=== PATIENT | female | born 1980 | race Caucasian/White ===

== ENCOUNTER 2017-02-21 15:19 | Emergency (ER) | payer OTHER ==
--- NOTE | 2017-02-21 16:19 | ED NURSING NOTES ---
Clinical Report - Nurses [facility] [address] [place] [address] 02/21/2017 15:20 Patient: ENDER BANKS TRIAGE Triage time 15:27. Acuity: LEVEL 4. Chief Complaint: TOOTHACHE. Alert. KATHRYN COMA SCORE: Kathryn Coma Scale: 15- eyes open spontaneously (4); best verbal response- oriented x 4 (5); best motor response- obeys commands (6). --15:34 Edwina Gregory R.N. 15:27 02/21/17. BP: 106/52. HR: 93. RR: 18. O2 saturation: 96% on room air. Temp: 98.4 F (oral). Pain level now: 07/06. --15:34 Edwina Gregory R.N. Weight: 73.4 kg stated. Height/Length: 68 inches Per Patient. BMI: 24.6. --15:31 Edwina Gregory R.N. Medications Venlafaxine HCl Oral. --15:28 Edwina Gregory R.N. LaMICtal Oral. --15:29 Edwina Gregory R.N. Medication/allergy information source: the patient. --15:34 Edwina Gregory R.N. Allergies Aspirin. Ibuprofen. Morphine and Related. Penicillins. --15:28 Edwina Gregory R.N. History Arrived by private vehicle. Historian: patient. Accompanied by family. Primary physician (Ken). Onset. (about 1 week). ( swelling onset about 2 hours ago). PAST MEDICAL HX: Last normal menstrual period- December 2016, "has been really weird for the last few months". SOCIAL HX: Heavy tobacco smoker- less than 1 pack per day. History of drug use: marijuana. No alcohol use. FALL RISK ASSESSMENT: Fall risk assessment completed. No fall risk identified. FUNCTIONAL ASSESSMENT: Functional assessment: no impairments noted. LEARNING NEEDS ASSESSMENT: The learning needs assessment revealed no barriers. --15:34 Colt, Edwina, R.N. PROBLEMS: Depression. Asthma. --15:29 Edwina Gregory R.N. ADDITIONAL SURGERIES: Knee Surgery. Laparoscopy. Oophorectomy. --15:30 Edwina Gregory R.N. Assessment GENERAL / NEURO / PSYCH: The patient is awake and alert, is oriented and cooperative and appears uncomfortable. She has poor eye contact. ( tearful). RESPIRATORY: Respirations not labored. SKIN: Skin is warm and dry. --15:34 Edwina Gregory R.N. Interventions ID and allergy band on patient. To treatment room. --15:34 Edwina Gregory R.N. PHYSICAL ASSESSMENT 15:30. Ambulatory to room. GENERAL / NEURO / PSYCH: The patient is awake and alert, is oriented and cooperative and appears uncomfortable. She has poor eye contact. RESPIRATORY: Respirations not labored. SKIN: Skin is warm and dry. --17:52 Edwina Gregoyr R.N. NURSING PROGRESS NOTES 15:30. Head of bed elevated. Call light placed in reach. Side rails up x 1. Bed placed in lowest position. Brakes of bed on. --17:52 Edwina Gregory R.N. 16:30. Overall patient status is the same- she states feels the same (pt appears sleepy, doesn't make eye contact). RESPIRATORY: No respiratory distress. SKIN: Skin is warm and dry. --17:55 Edwina Gregory R.N. DISPOSITION / DISCHARGE Departure time: 1620. Condition at departure: stable. Ability to learn limited by poor cooperation. Discharge instructions provided and reviewed with the patient. Reviewed medication(s). Prescription(s) given to the patient. Patient verbalized understanding. Written instructions provided in Sudanese. The patient was discharged home and accompanied by child. She left the Emergency Department ambulatory and via private vehicle. FALL RISK ASSESSMENT: Fall risk assessment completed. No fall risk identified. --17:54 Edwina Gregory R.N. 16:20 02/21/17. BP: 112/58. HR: 71. RR: 16. O2 saturation: 100% on room air. Pain level now: 07/06. --17:54 Edwina Gregory R.N. Locked/Released at 02/21/2017 17:56 by Edwina Gregory R.N.
--- NOTE | 2017-02-21 16:19 | ED CLINICAL REPORT ---
Clinical Report - Physicians/Mid Levels [facility] [address] [place] [address] 02/21/2017 15:20 Patient: ENDER BANKS Time Seen: 15:31. Arrived- By private vehicle. Historian- patient. HISTORY OF PRESENT ILLNESS Chief Complaint: DENTAL PAIN. This started about 1 week ago and is still present. It was gradual in onset and has been constant. Pain described as severe. The patient has had severe toothache (right upper molar). She has had mild swelling of the right face. She has had jaw pain. REVIEW OF SYSTEMS No chills, fever, sweats, calf pain or chest pain. No cough, difficulty breathing, pedal edema, palpitations or abdominal pain. No constipation, diarrhea, nausea, vomiting or urinary problems. All systems otherwise negative, except as recorded above. PAST HISTORY Problems: Asthma. Depression. Additional Surgeries: Knee Surgery. Laparoscopy. Oophorectomy. Medications: LaMICtal Oral. Venlafaxine HCl Oral. Allergies: Aspirin. Ibuprofen. Morphine and Related. Penicillins. SOCIAL HISTORY Current every day heavy tobacco smoker (cigarette)- less than 1 pack per day. History of occasional drug use: marijuana. No alcohol use. FAMILY HISTORY No significant family medical history. ADDITIONAL NOTES The nursing notes have been reviewed. PHYSICAL EXAM Vital Signs: 02/21/2017 15:27 BP: 106/52. HR: 93. RR: 18. O2 saturation: 96%. Temp: 98.4 F. Pain level now: 10/10. Have been reviewed. Appearance: Alert. Eyes: Pupils equal, round and reactive to light. ENT: Dental decay with gingival tenderness, induration and swelling (upper right molars). Ears normal. Nose normal. Pharynx normal. Lips normal. No trismus present. Uvula midline. Neck: Trachea midline. No adenopathy. Thyroid normal. Neck supple. CVS: Heart sounds normal. Respiratory: Breath sounds normal. Skin: Normal skin color. No rash. Normal skin turgor. PROGRESS AND PROCEDURES Course of Care: Patient is stable. Patient/family counseled. Old medical records ordered. Old records unavailable. Disposition: Discharged. Condition: stable. CLINICAL IMPRESSION Dental pain. INSTRUCTIONS No driving or operating machinery while taking medication. Drink plenty of fluids. Warnings: Further evaluation is necessary. GENERAL WARNINGS: Return or contact your physician immediately if your condition worsens or changes unexpectedly, if not improving as expected, or if other problems arise. Prescription Medications: Ultram 50 mg: take 1-2 orally every 6 hours as needed for pain. Dispense fifteen (15). No refills. Substitution is permissible. Clindamycin 300 mg: take 1 capsule orally every 6 hours for 10 days. No refill. Follow-up: Follow up with a dentist Wednesday in two days. Call for an appointment. Understanding of the discharge instructions verbalized by patient. (Electronically signed by Thom Rankin MD 02/21/2017 19:39)
--- NOTE | 2017-02-21 16:19 | ED CLINICAL REPORT ---
Clinical Report - Physicians/Mid Levels [facility] [address] [place] [address] 02/21/2017 15:20 Patient: ENDER BANKS Time Seen: 15:31. Arrived- By private vehicle. Historian- patient. HISTORY OF PRESENT ILLNESS Chief Complaint: DENTAL PAIN. This started about 1 week ago and is still present. It was gradual in onset and has been constant. Pain described as severe. The patient has had severe toothache (right upper molar). She has had mild swelling of the right face. She has had jaw pain. REVIEW OF SYSTEMS No chills, fever, sweats, calf pain or chest pain. No cough, difficulty breathing, pedal edema, palpitations or abdominal pain. No constipation, diarrhea, nausea, vomiting or urinary problems. All systems otherwise negative, except as recorded above. PAST HISTORY Problems: Asthma. Depression. Additional Surgeries: Knee Surgery. Laparoscopy. Oophorectomy. Medications: LaMICtal Oral. Venlafaxine HCl Oral. Allergies: Aspirin. Ibuprofen. Morphine and Related. Penicillins. SOCIAL HISTORY Current every day heavy tobacco smoker (cigarette)- less than 1 pack per day. History of occasional drug use: marijuana. No alcohol use. FAMILY HISTORY No significant family medical history. ADDITIONAL NOTES The nursing notes have been reviewed. PHYSICAL EXAM Vital Signs: 02/21/2017 15:27 BP: 106/52. HR: 93. RR: 18. O2 saturation: 96%. Temp: 98.4 F. Pain level now: 10/10. Have been reviewed. Appearance: Alert. Eyes: Pupils equal, round and reactive to light. ENT: Dental decay with gingival tenderness, induration and swelling (upper right molars). Ears normal. Nose normal. Pharynx normal. Lips normal. No trismus present. Uvula midline. Neck: Trachea midline. No adenopathy. Thyroid normal. Neck supple. CVS: Heart sounds normal. Respiratory: Breath sounds normal. Skin: Normal skin color. No rash. Normal skin turgor. PROGRESS AND PROCEDURES Course of Care: Patient is stable. Patient/family counseled. Old medical records ordered. Old records unavailable. Disposition: Discharged. Condition: stable. CLINICAL IMPRESSION Dental pain. INSTRUCTIONS No driving or operating machinery while taking medication. Drink plenty of fluids. Warnings: Further evaluation is necessary. GENERAL WARNINGS: Return or contact your physician immediately if your condition worsens or changes unexpectedly, if not improving as expected, or if other problems arise. Prescription Medications: Ultram 50 mg: take 1-2 orally every 6 hours as needed for pain. Dispense fifteen (15). No refills. Substitution is permissible. Clindamycin 300 mg: take 1 capsule orally every 6 hours for 10 days. No refill. Follow-up: Follow up with a dentist Wednesday in two days. Call for an appointment. Understanding of the discharge instructions verbalized by patient. (Electronically signed by Thom Rankin MD 02/21/2017 19:39)
--- NOTE | 2017-02-21 19:40 | ED MED RECONCILIATION SUMMARY ---
Patient: ENDER BANKS Medication Reconciliation Report [facility] VisitID: [id number] [address] [place] [address] 36y, F Registration Date/Time: 02/21/2017 Weight: 73.4 kg Height/Length: 68 in. BMI: 24.6 ALLERGIES: Aspirin, Ibuprofen, Morphine and Related, Penicillins The patient's Home Medications are listed below: THE FOLLOWING MEDICATIONS NEED TO BE RECONCILED: LaMICtal Oral Venlafaxine HCl Oral The source(s) of the original Home Medication information: patient The following Medications were given to the patient in the Emergency Department: None. The following Medications were prescribed to the patient: Ultram 50 mg: take 1-2 orally every 6 hours as needed for pain. Dispense fifteen (15). No refills. Substitution is permissible. -- Thom Rankin MD Clindamycin 300 mg: take 1 capsule orally every 6 hours for 10 days. No refill. -- Thom Rankin MD
--- NOTE | 2017-02-21 19:40 | ED DISCHARGE INSTRUCTIONS ---
Patient: ENDER BANKS General Instructions [facility] VisitID: [id number] [place] [address] 36y, F Registration Date/Time: 02/21/2017 Dental pain. INSTRUCTIONS No driving or operating machinery while taking medication. Drink plenty of fluids. Warnings: Further evaluation is necessary. GENERAL WARNINGS: Return or contact your physician immediately if your condition worsens or changes unexpectedly, if not improving as expected, or if other problems arise. Prescription Medications: Ultram 50 mg: take 1-2 orally every 6 hours as needed for pain. Dispense fifteen (15). No refills. Substitution is permissible. Clindamycin 300 mg: take 1 capsule orally every 6 hours for 10 days. No refill. Follow-up: Follow up with a dentist Wednesday in two days. Call for an appointment. Understanding of the discharge instructions verbalized by patient. ADDITIONAL INFORMATION Dental Pain A crack or cavity in the tooth, which exposes the sensitive inner area of the tooth can cause tooth pain. An infection in the gum or the root of the tooth can cause pain and swelling. The pain is often made worse by drinking hot or cold fluids, or biting on hard foods. Pain may spread from the tooth to the ear or jaw on the same side. Home Care: Avoid hot and cold foods and liquids since your tooth may be sensitive to temperature changes. If your tooth is chipped or cracked, or if there is a large open cavity, apply OIL OF CLOVES (available xnll-ywj-xisrskh in drug stores) directly to the tooth to reduce pain. Some pharmacies carry an gglr-fse-lzlfugl "toothache kit." This contains a paste, which can be applied over the exposed tooth to decrease sensitivity. A cold pack on your jaw over the sore area may help reduce pain. You may use acetaminophen (Tylenol) or ibuprofen (Motrin, Advil) to control pain, unless another medicine was prescribed. [ NOTE: If you have chronic liver or kidney disease or ever had a stomach ulcer or GI bleeding, talk with your doctor before using these medicines.] If you have signs of an infection, an antibiotic will be given. Take it as directed. Follow-Up as directed with a dentist. Your pain may go away with the treatment given. However, only a dentist can fully evaluate and treat the cause and prevent the pain from coming back again. TOOTHACHE IS A SIGN OF DISEASE IN YOUR TOOTH AND SHOULD BE EXAMINED AND TREATED BY A DENTIST. Get Prompt Medical Attention if any of the following occur: Your face becomes swollen or red Pain worsens or spreads to the neck Fever over 100.4 F (38.0 C) Unusual drowsiness; headache or stiff neck; weakness or fainting Pus drains from the tooth Difficulty swallowing or breathing Dental Cavity A dental cavity is a pit or crater in the enamel surface of the tooth. This exposes the sensitive inner layer of the tooth and causes pain. If untreated, the cavity will get bigger and may cause an infection or abscess in the root of the tooth. An infection in the tooth is a much more serious problem and may require a root canal or removal of the entire tooth. The tooth pain may be made worse by drinking hot or cold fluids. It may spread from the tooth to the ear or jaw on the same side. Home Care: Avoid hot and cold foods, and liquids since your tooth may be sensitive to temperature changes. If your tooth is chipped or cracked, or if there is a large open cavity, apply OIL OF CLOVES (available mikh-sba-hkzzdjm in drug stores) directly to the tooth to reduce pain. Some pharmacies carry an nflp-zgg-mxwkroq "toothache kit." This contains oil of cloves and a paste, which can be applied over the exposed tooth to decrease sensitivity. An ice pack on your jaw over the sore area may help to reduce pain. You may use acetaminophen (Tylenol) or ibuprofen (Motrin, Advil) to control pain, unless another pain medicine was prescribed. [ NOTE: If you have liver disease or ever had a stomach ulcer, talk with your doctor before using these medicines.] If you have signs of an infection, an antibiotic will be given. Take it as directed. Follow-Up with your dentist as directed. Although your pain may go away with the treatment given, only a dentist can fully evaluate and treat this problem to prevent further tooth damage. Get Prompt Medical Attention if any of the following occur: Redness or swelling of the face Pain worsens or spreads to the neck Fever over 100.5 F (38C) Unusual drowsiness; headache or stiff neck; weakness or fainting Pus drains from the tooth or gum Difficulty swallowing or breathing Tramadol Hydrochloride Oral tablet What is this medicine? TRAMADOL (TRA ma dole) is a pain reliever. It is used to treat moderate to severe pain in adults. How should I use this medicine? Take this medicine by mouth with a full glass of water. Follow the directions on the prescription label. If the medicine upsets your stomach, take it with food or milk. Do not take more medicine than you are told to take. Talk to your high school social studies teacher regarding the use of this medicine in children. Special care may be needed. What side effects may I notice from receiving this medicine? Side effects that you should report to your doctor or health health care analyst as soon as possible: allergic reactions like skin rash, itching or hives, swelling of the face, lips, or tongue breathing difficulties, wheezing confusion itching light headedness or fainting spells redness, blistering, peeling or loosening of the skin, including inside the mouth seizures Side effects that usually do not require medical attention (report to your doctor or health health care analyst if they continue or are bothersome): constipation dizziness drowsiness headache nausea, vomiting What may interact with this medicine? Do not take this medicine with any of the following medications: MAOIs like Carbex, Eldepryl, Marplan, Nardil, and Parnate This medicine may also interact with the following medications: alcohol or medicines that contain alcohol antihistamines benzodiazepines bupropion carbamazepine or oxcarbazepine clozapine cyclobenzaprine digoxin furazolidone linezolid medicines for depression, anxiety, or psychotic disturbances medicines for migraine headache like almotriptan, eletriptan, frovatriptan, naratriptan, rizatriptan, sumatriptan, zolmitriptan medicines for pain like pentazocine, buprenorphine, butorphanol, meperidine, nalbuphine, and propoxyphene medicines for sleep muscle relaxants naltrexone phenobarbital phenothiazines like perphenazine, thioridazine, chlorpromazine, mesoridazine, fluphenazine, prochlorperazine, promazine, and trifluoperazine procarbazine warfarin What if I miss a dose? If you miss a dose, take it as soon as you can. If it is almost time for your next dose, take only that dose. Do not take double or extra doses. Where should I keep my medicine? Keep out of the reach of children. Store at room temperature between 15 and 30 degrees C (59 and 86 degrees F). Keep container tightly closed. Throw away any unused medicine after the expiration date. What should I tell my health care provider before I take this medicine? They need to know if you have any of these conditions: brain tumor depression drug abuse or addiction head injury if you frequently drink alcohol containing drinks kidney disease or trouble passing urine liver disease lung disease, asthma, or breathing problems seizures or epilepsy suicidal thoughts, plans, or attempt; a previous suicide attempt by you or a family member an unusual or allergic reaction to tramadol, codeine, other medicines, foods, dyes, or preservatives or trying to get breast-feeding What should I watch for while using this medicine? Tell your doctor or health health care analyst if your pain does not go away, if it gets worse, or if you have new or a different type of pain. You may develop tolerance to the medicine. Tolerance means that you will need a higher dose of the medicine for pain relief. Tolerance is normal and is expected if you take this medicine for a long time. Do not suddenly stop taking your medicine because you may develop a severe reaction. Your body becomes used to the medicine. This does NOT mean you are addicted. Addiction is a behavior related to getting and using a drug for a non-medical reason. If you have pain, you have a medical reason to take pain medicine. Your doctor will tell you how much medicine to take. If your doctor wants you to stop the medicine, the dose will be slowly lowered over time to avoid any side effects. You may get drowsy or dizzy. Do not drive, use machinery, or do anything that needs mental alertness until you know how this medicine affects you. Do not stand or sit up quickly, especially if you are an older patient. This reduces the risk of dizzy or fainting spells. Alcohol can increase or decrease the effects of this medicine. Avoid alcoholic drinks. You may have constipation. Try to have a bowel movement at least every 2 to 3 days. If you do not have a bowel movement for 3 days, call your doctor or health health care analyst. Your mouth may get dry. Chewing sugarless gum or sucking hard candy, and drinking plenty of water may help. Contact your doctor if the problem does not go away or is severe. Clindamycin Hydrochloride Oral capsule What is this medicine? CLINDAMYCIN (SRUTHI Mccaluey) is a lincosamide antibiotic. It is used to treat certain kinds of bacterial infections. It will not work for colds, flu, or other viral infections. How should I use this medicine? Take this medicine by mouth with a full glass of water. Follow the directions on the prescription label. You can take this medicine with food or on an empty stomach. If the medicine upsets your stomach, take it with food. Take your medicine at regular intervals. Do not take your medicine more often than directed. Take all of your medicine as directed even if you think your are better. Do not skip doses or stop your medicine early. Talk to your high school social studies teacher regarding the use of this medicine in children. Special care may be needed. What side effects may I notice from receiving this medicine? Side effects that you should report to your doctor or health health care analyst as soon as possible: allergic reactions like skin rash, itching or hives, swelling of the face, lips, or tongue dark urine pain on swallowing redness, blistering, peeling or loosening of the skin, including inside the mouth unusual bleeding or bruising unusually weak or tired yellowing of eyes or skin Side effects that usually do not require medical attention (report to your doctor or health health care analyst if they continue or are bothersome): diarrhea itching in the rectal or genital area joint pain nausea, vomiting stomach pain What may interact with this medicine? chloramphenicol erythromycin kaolin products What if I miss a dose? If you miss a dose, take it as soon as you can. If it is almost time for your next dose, take only that dose. Do not take double or extra doses. Where should I keep my medicine? Keep out of the reach of children. Store at room temperature between 20 and 25 degrees C (68 and 77 degrees F). Throw away any unused medicine after the expiration date. What should I tell my health care provider before I take this medicine? They need to know if you have any of these conditions: kidney disease liver disease stomach problems like colitis an unusual or allergic reaction to clindamycin, lincomycin, or other medicines, foods, dyes like tartrazine or preservatives or trying to get breast-feeding What should I watch for while using this medicine? Tell your doctor or healthcare professional if your symptoms do not start to get better or if they get worse. Do not treat diarrhea with over the counter products. Contact your doctor if you have diarrhea that lasts more than 2 days or if it is severe and watery. You have been given the following additional information: Dental Pain Dental Cavity Tramadol Hydrochloride Oral tablet Clindamycin Hydrochloride Oral capsule No driving or operating machinery while taking medication. (Electronically signed by Thom Rankin MD 02/21/2017 19:39)
--- NOTE | 2017-02-21 19:40 | ED MAR SUMMARY ---
..... Medication Administration Record [facility] [address], [place] [id number] Patient: ENDER BANKS Visit ID: [id number] 36y, F Weight: 73.4 kg Height/Length: 68 in BMI: 24.6 ALLERGIES: Aspirin, Penicillins, Morphine and Related, Ibuprofen
--- NOTE | 2017-02-21 19:40 | ED MAR SUMMARY ---
..... Medication Administration Record [facility] [address] [place], [place] [id number] Patient: ENDER BANKS Visit ID: [id number] 36y, F Weight: 73.4 kg Height/Length: 68 in BMI: 24.6 ALLERGIES: Aspirin, Penicillins, Morphine and Related, Ibuprofen
--- NOTE | 2017-02-21 19:40 | ED MED RECONCILIATION SUMMARY ---
Patient: ENDER BANKS Medication Reconciliation Report [facility] VisitID: [id number] [address] [place] [address] 36y, F Registration Date/Time: 02/21/2017 Weight: 73.4 kg Height/Length: 68 in. BMI: 24.6 ALLERGIES: Aspirin, Ibuprofen, Morphine and Related, Penicillins The patient's Home Medications are listed below: THE FOLLOWING MEDICATIONS NEED TO BE RECONCILED: LaMICtal Oral Venlafaxine HCl Oral The source(s) of the original Home Medication information: patient The following Medications were given to the patient in the Emergency Department: None. The following Medications were prescribed to the patient: Ultram 50 mg: take 1-2 orally every 6 hours as needed for pain. Dispense fifteen (15). No refills. Substitution is permissible. -- Thom Rankin MD Clindamycin 300 mg: take 1 capsule orally every 6 hours for 10 days. No refill. -- Thom Rankin MD
--- NOTE | 2017-02-21 19:40 | ED DISCHARGE INSTRUCTIONS ---
Patient: ENDER BANKS General Instructions [facility] VisitID: [id number] [place] [address] 36y, F Registration Date/Time: 02/21/2017 Dental pain. INSTRUCTIONS No driving or operating machinery while taking medication. Drink plenty of fluids. Warnings: Further evaluation is necessary. GENERAL WARNINGS: Return or contact your physician immediately if your condition worsens or changes unexpectedly, if not improving as expected, or if other problems arise. Prescription Medications: Ultram 50 mg: take 1-2 orally every 6 hours as needed for pain. Dispense fifteen (15). No refills. Substitution is permissible. Clindamycin 300 mg: take 1 capsule orally every 6 hours for 10 days. No refill. Follow-up: Follow up with a dentist Wednesday in two days. Call for an appointment. Understanding of the discharge instructions verbalized by patient. ADDITIONAL INFORMATION Dental Pain A crack or cavity in the tooth, which exposes the sensitive inner area of the tooth can cause tooth pain. An infection in the gum or the root of the tooth can cause pain and swelling. The pain is often made worse by drinking hot or cold fluids, or biting on hard foods. Pain may spread from the tooth to the ear or jaw on the same side. Home Care: Avoid hot and cold foods and liquids since your tooth may be sensitive to temperature changes. If your tooth is chipped or cracked, or if there is a large open cavity, apply OIL OF CLOVES (available iwrt-eqz-qntgweq in drug stores) directly to the tooth to reduce pain. Some pharmacies carry an oxij-gkq-oqezpvb "toothache kit." This contains a paste, which can be applied over the exposed tooth to decrease sensitivity. A cold pack on your jaw over the sore area may help reduce pain. You may use acetaminophen (Tylenol) or ibuprofen (Motrin, Advil) to control pain, unless another medicine was prescribed. [ NOTE: If you have chronic liver or kidney disease or ever had a stomach ulcer or GI bleeding, talk with your doctor before using these medicines.] If you have signs of an infection, an antibiotic will be given. Take it as directed. Follow-Up as directed with a dentist. Your pain may go away with the treatment given. However, only a dentist can fully evaluate and treat the cause and prevent the pain from coming back again. TOOTHACHE IS A SIGN OF DISEASE IN YOUR TOOTH AND SHOULD BE EXAMINED AND TREATED BY A DENTIST. Get Prompt Medical Attention if any of the following occur: Your face becomes swollen or red Pain worsens or spreads to the neck Fever over 100.4 F (38.0 C) Unusual drowsiness; headache or stiff neck; weakness or fainting Pus drains from the tooth Difficulty swallowing or breathing Dental Cavity A dental cavity is a pit or crater in the enamel surface of the tooth. This exposes the sensitive inner layer of the tooth and causes pain. If untreated, the cavity will get bigger and may cause an infection or abscess in the root of the tooth. An infection in the tooth is a much more serious problem and may require a root canal or removal of the entire tooth. The tooth pain may be made worse by drinking hot or cold fluids. It may spread from the tooth to the ear or jaw on the same side. Home Care: Avoid hot and cold foods, and liquids since your tooth may be sensitive to temperature changes. If your tooth is chipped or cracked, or if there is a large open cavity, apply OIL OF CLOVES (available jjjf-amw-ekonhri in drug stores) directly to the tooth to reduce pain. Some pharmacies carry an mbhu-xkb-zdfnqnq "toothache kit." This contains oil of cloves and a paste, which can be applied over the exposed tooth to decrease sensitivity. An ice pack on your jaw over the sore area may help to reduce pain. You may use acetaminophen (Tylenol) or ibuprofen (Motrin, Advil) to control pain, unless another pain medicine was prescribed. [ NOTE: If you have liver disease or ever had a stomach ulcer, talk with your doctor before using these medicines.] If you have signs of an infection, an antibiotic will be given. Take it as directed. Follow-Up with your dentist as directed. Although your pain may go away with the treatment given, only a dentist can fully evaluate and treat this problem to prevent further tooth damage. Get Prompt Medical Attention if any of the following occur: Redness or swelling of the face Pain worsens or spreads to the neck Fever over 100.5 F (38C) Unusual drowsiness; headache or stiff neck; weakness or fainting Pus drains from the tooth or gum Difficulty swallowing or breathing Tramadol Hydrochloride Oral tablet What is this medicine? TRAMADOL (TRA ma dole) is a pain reliever. It is used to treat moderate to severe pain in adults. How should I use this medicine? Take this medicine by mouth with a full glass of water. Follow the directions on the prescription label. If the medicine upsets your stomach, take it with food or milk. Do not take more medicine than you are told to take. Talk to your dental detail representative regarding the use of this medicine in children. Special care may be needed. What side effects may I notice from receiving this medicine? Side effects that you should report to your doctor or health continuum of care manager as soon as possible: allergic reactions like skin rash, itching or hives, swelling of the face, lips, or tongue breathing difficulties, wheezing confusion itching light headedness or fainting spells redness, blistering, peeling or loosening of the skin, including inside the mouth seizures Side effects that usually do not require medical attention (report to your doctor or health continuum of care manager if they continue or are bothersome): constipation dizziness drowsiness headache nausea, vomiting What may interact with this medicine? Do not take this medicine with any of the following medications: MAOIs like Carbex, Eldepryl, Marplan, Nardil, and Parnate This medicine may also interact with the following medications: alcohol or medicines that contain alcohol antihistamines benzodiazepines bupropion carbamazepine or oxcarbazepine clozapine cyclobenzaprine digoxin furazolidone linezolid medicines for depression, anxiety, or psychotic disturbances medicines for migraine headache like almotriptan, eletriptan, frovatriptan, naratriptan, rizatriptan, sumatriptan, zolmitriptan medicines for pain like pentazocine, buprenorphine, butorphanol, meperidine, nalbuphine, and propoxyphene medicines for sleep muscle relaxants naltrexone phenobarbital phenothiazines like perphenazine, thioridazine, chlorpromazine, mesoridazine, fluphenazine, prochlorperazine, promazine, and trifluoperazine procarbazine warfarin What if I miss a dose? If you miss a dose, take it as soon as you can. If it is almost time for your next dose, take only that dose. Do not take double or extra doses. Where should I keep my medicine? Keep out of the reach of children. Store at room temperature between 15 and 30 degrees C (59 and 86 degrees F). Keep container tightly closed. Throw away any unused medicine after the expiration date. What should I tell my health care provider before I take this medicine? They need to know if you have any of these conditions: brain tumor depression drug abuse or addiction head injury if you frequently drink alcohol containing drinks kidney disease or trouble passing urine liver disease lung disease, asthma, or breathing problems seizures or epilepsy suicidal thoughts, plans, or attempt; a previous suicide attempt by you or a family member an unusual or allergic reaction to tramadol, codeine, other medicines, foods, dyes, or preservatives or trying to get breast-feeding What should I watch for while using this medicine? Tell your doctor or health continuum of care manager if your pain does not go away, if it gets worse, or if you have new or a different type of pain. You may develop tolerance to the medicine. Tolerance means that you will need a higher dose of the medicine for pain relief. Tolerance is normal and is expected if you take this medicine for a long time. Do not suddenly stop taking your medicine because you may develop a severe reaction. Your body becomes used to the medicine. This does NOT mean you are addicted. Addiction is a behavior related to getting and using a drug for a non-medical reason. If you have pain, you have a medical reason to take pain medicine. Your doctor will tell you how much medicine to take. If your doctor wants you to stop the medicine, the dose will be slowly lowered over time to avoid any side effects. You may get drowsy or dizzy. Do not drive, use machinery, or do anything that needs mental alertness until you know how this medicine affects you. Do not stand or sit up quickly, especially if you are an older patient. This reduces the risk of dizzy or fainting spells. Alcohol can increase or decrease the effects of this medicine. Avoid alcoholic drinks. You may have constipation. Try to have a bowel movement at least every 2 to 3 days. If you do not have a bowel movement for 3 days, call your doctor or health continuum of care manager. Your mouth may get dry. Chewing sugarless gum or sucking hard candy, and drinking plenty of water may help. Contact your doctor if the problem does not go away or is severe. Clindamycin Hydrochloride Oral capsule What is this medicine? CLINDAMYCIN (SRUTHI Mccauley) is a lincosamide antibiotic. It is used to treat certain kinds of bacterial infections. It will not work for colds, flu, or other viral infections. How should I use this medicine? Take this medicine by mouth with a full glass of water. Follow the directions on the prescription label. You can take this medicine with food or on an empty stomach. If the medicine upsets your stomach, take it with food. Take your medicine at regular intervals. Do not take your medicine more often than directed. Take all of your medicine as directed even if you think your are better. Do not skip doses or stop your medicine early. Talk to your dental detail representative regarding the use of this medicine in children. Special care may be needed. What side effects may I notice from receiving this medicine? Side effects that you should report to your doctor or health continuum of care manager as soon as possible: allergic reactions like skin rash, itching or hives, swelling of the face, lips, or tongue dark urine pain on swallowing redness, blistering, peeling or loosening of the skin, including inside the mouth unusual bleeding or bruising unusually weak or tired yellowing of eyes or skin Side effects that usually do not require medical attention (report to your doctor or health continuum of care manager if they continue or are bothersome): diarrhea itching in the rectal or genital area joint pain nausea, vomiting stomach pain What may interact with this medicine? chloramphenicol erythromycin kaolin products What if I miss a dose? If you miss a dose, take it as soon as you can. If it is almost time for your next dose, take only that dose. Do not take double or extra doses. Where should I keep my medicine? Keep out of the reach of children. Store at room temperature between 20 and 25 degrees C (68 and 77 degrees F). Throw away any unused medicine after the expiration date. What should I tell my health care provider before I take this medicine? They need to know if you have any of these conditions: kidney disease liver disease stomach problems like colitis an unusual or allergic reaction to clindamycin, lincomycin, or other medicines, foods, dyes like tartrazine or preservatives or trying to get breast-feeding What should I watch for while using this medicine? Tell your doctor or healthcare professional if your symptoms do not start to get better or if they get worse. Do not treat diarrhea with over the counter products. Contact your doctor if you have diarrhea that lasts more than 2 days or if it is severe and watery. You have been given the following additional information: Dental Pain Dental Cavity Tramadol Hydrochloride Oral tablet Clindamycin Hydrochloride Oral capsule No driving or operating machinery while taking medication. (Electronically signed by Thom Rankin MD 02/21/2017 19:39)
== END 2017-02-21 16:20 | disposition home or self-care (01) ==
LOC: ED SRH 15:19
DX: K08.89 Other specified disorders of teeth and supporting structures (principal); Z79.899 Other long term (current) drug therapy; Z88.6 Allergy status to analgesic agent; Z88.0 Allergy status to penicillin; Z88.5 Allergy status to narcotic agent